=== PATIENT | female | born 1950 | race African-American/Black ===

== ENCOUNTER 2016-08-12 11:29 | Outpatient (CLI) | payer MEDICARE ==
--- NOTE | 2016-08-12 14:04 | RAD ---
LUMBAR SPINE THREE VIEWS: History: Low back pain, right side sciatica. FINDINGS: There are degenerative changes of the levoscoliosis of the lumbar spine. No fracture, subluxation, o r bony destruction is seen. Calcified uterine fibroids are present. IMPRESSION: 1. Lumbar spondylosis with levoscoliosis. 2. Uterine fibroids. POS: [facility]
== END 2016-08-12 11:30 | disposition home or self-care (01) ==
LOC: BURRAD 11:29
PROVIDERS: ATTEND Physician Assistant
DX: M54.41 Lumbago with sciatica, right side (principal); M47.816 Spondylosis without myelopathy or radiculopathy, lumbar region; M41.86 Other forms of scoliosis, lumbar region; D25.9 Leiomyoma of uterus, unspecified
CPT/HCPCS: 72100

== ENCOUNTER 2018-01-16 11:27 | Emergency (ER) | payer MEDICARE ==
[2018-01-16] MEDS ORDERED: Ketorolac Tromethamine 30 MG/ML VIAL ONE (12:10)
== END 2018-01-16 12:43 | disposition home or self-care (01) ==
LOC: BURERS 11:27
DX: M54.16 Radiculopathy, lumbar region (principal); E78.5 Hyperlipidemia, unspecified; I10 Essential (primary) hypertension; F17.220 Nicotine dependence, chewing tobacco, uncomplicated; Z79.899 Other long term (current) drug therapy; Z79.82 Long term (current) use of aspirin
CPT/HCPCS: 96372; J1885

== ENCOUNTER 2019-02-19 09:45 | Emergency (ER) | payer MEDICARE ==
[2019-02-19] MEDS ORDERED: hydrOXYzine 25 MG TAB ONE (10:05)
== END 2019-02-19 10:13 | disposition home or self-care (01) ==
LOC: BURERS 09:45
DX: L29.9 Pruritus, unspecified (principal); T47.1X5A Adverse effect of other antacids and anti-gastric-secretion drugs, initial encounter; E78.5 Hyperlipidemia, unspecified; E78.00 Pure hypercholesterolemia, unspecified; I10 Essential (primary) hypertension; M19.90 Unspecified osteoarthritis, unspecified site; F17.220 Nicotine dependence, chewing tobacco, uncomplicated; Z79.899 Other long term (current) drug therapy; Z79.82 Long term (current) use of aspirin
CPT/HCPCS: 99282